=== PATIENT | female | born 1935 | race African-American/Black ===

== ENCOUNTER 2019-03-07 18:21 | Emergency (ER) | payer OTHER ==
[~2019-03-07] VITALS: Ht 157.5 cm; Wt 74.8 kg
[2019-03-07] MEDS ORDERED: NOHOMEMEDICATIONS (19:47)
[2019-03-07 20:26] LABS: HEMATOCRIT 35.2 % (37.0-47.0); HEMOGLOBIN 11.5 gm/dL (12.0-15.0); MCH 30.5 pg (26.0-34.0); MCHC 32.7 g/dL (28.0-37.0); MCV 93.4 fL (80.0-100.0); RBC 3.77 mil/uL (4.20-5.00); RDW 16.2 % (10.5-14.5); WBC 5.5 thou/uL (4.0-11.0)
[2019-03-07 21:08] LABS: ANION GAP 9 mmol/L (7-16); BUN 16 mg/dL (7-18); CHLORIDE 106 mmol/L (98-107); CO2 26 mmol/L (21-32); CREATININE 0.8 mg/dL (0.6-1.0); GLUCOSE 104 mg/dL (74-106); POTASSIUM 3.6 mmol/L (3.5-5.1); SODIUM 141 mmol/L (136-145)
[2019-03-07 21:17] LABS: ALBUMIN 3.3 g/dL (3.4-5.0); SGOT 26 U/L (15-37); SGPT 20 U/L (30-65); TOTAL BILIRUBIN 0.3 mg/dL (<0.1-1.0); TOTAL PROTEIN 7.5 g/dL (6.4-8.2); TROPONIN-I <0.06 ng/mL (<0.06)
[2019-03-07] MEDS ORDERED: MOBIC7.5 MG PO (21:54)
[2019-03-08 00:34] VITALS: BP 174/71
--- NOTE | 2019-03-08 10:52 | EKG ---
[facility] [place] [address] ELECTROCARDIOGRAM REPORT Name: DIONNE HERRERA Room #: [facility] [id number] Admission: 03/07/19 Attend Phys: Discharge: 03/08/19 Date of : 33 Report #: [id number] THIS REPORT FOR: //name// [facility] ED Test Date: 2019-03-07 Test Time: 20:37:51 Pat Name: DIONNE HERRERA Department: Room: Gender: F [employer] Sales Executive: jacky : 1935 Requested By: Alina Cervantes Order Number: [id number] MD: Maximilian Ma Measurements Intervals [place] Rate: 68 P: 52 NC: 155 QRS: -19 QRSD: 163 T: 27 QT: 449 QTc: 478 Interpretive Statements Sinus rhythm Multiple ventricular premature complexes Right bundle branch block Left ventricular hypertrophy No previous ECG available for comparison Electronically Signed On 03-08-2019 10:52:20 CDT by Maximilian Ma [email or web address] <ELECTRONICALLY SIGNED> By: Maximilian Ma MD, [facility] 03/08/19 1052 [id number] 36 Maximilian Ma MD, FACC /EPI
== END 2019-03-08 00:35 | disposition home or self-care (01) ==
LOC: ER 18:21
PROVIDERS: Nurse Practitioner Family
DX: M54.12 Radiculopathy, cervical region (principal); M25.562 Pain in left knee; R03.0 Elevated blood-pressure reading, without diagnosis of hypertension; Z88.0 Allergy status to penicillin

== ENCOUNTER 2019-08-15 20:30 | Emergency (ER) | payer OTHER ==
[~2019-08-15] VITALS: Ht 154.9 cm; Wt 38.6 kg
[~2019-08-15 20:30] MED LIST: MOBIC7.5 MG PO; NOHOMEMEDICATIONS
[2019-08-15 21:46] LABS: URINE BILIRUBIN NEGATIVE (Negative); URINE BLOOD TRACE (Negative); URINE CLARITY CLEAR; URINE COLOR YELLOW; URINE GLUCOSE-RANDOM* NEGATIVE (Negative); URINE KETONES NEGATIVE (Negative); URINE LEUKOCYTES-REFLEX NEGATIVE (Negative); URINE NITRITE-REFLEX NEGATIVE (Negative); URINE PROTEIN (DIPSTICK) NEGATIVE (Negative); URINE UROBILINOGEN 0.2 E.U./dl (0.2-1.0)
[2019-08-15 21:54] LABS: ABSOLUTE NEUTROPHILS 1.1 thou/uL (1.4-8.2); BASOPHILS 0.9 % (0.0-2.0); HEMATOCRIT 38.7 % (37.0-47.0); HEMOGLOBIN 12.5 gm/dL (12.0-15.0); LYMPHOCYTES 52.2 % (24.0-44.0); MCH 30.7 pg (26.0-34.0); MCHC 32.3 g/dL (28.0-37.0); MCV 94.9 fL (80.0-100.0); MONOCYTES 8.6 % (1.0-8.0); PLATELET COUNT 136 thou/uL (150-400); POLYS 37.3 % (36.0-66.0); RBC 4.07 mil/uL (4.20-5.00); RDW 15.3 % (10.5-14.5)
[2019-08-15 22:00] LABS: CALCIUM 8.6 mg/dL (8.5-10.1); CREATININE 0.8 mg/dL (0.6-1.0); POTASSIUM 3.9 mmol/L (3.5-5.1)
[2019-08-15 22:06] LABS: ALBUMIN 3.7 g/dL (3.4-5.0); DIRECT BILIRUBIN 0.2 mg/dL (<0.1-0.2); TOTAL BILIRUBIN 0.7 mg/dL (<0.1-1.0); TOTAL PROTEIN 7.9 g/dL (6.4-8.2)
[2019-08-15 23:02] LABS: LARGE PLATELETS OCCASIONAL
[2019-08-16] MEDS ORDERED: COLACE100 MG PO (01:01)
[2019-08-16 01:56] VITALS: BP 142/64
== END 2019-08-16 01:57 | disposition home or self-care (01) ==
LOC: ER 20:30
PROVIDERS: Emergency Medicine Emergency Medical Services; Nurse Practitioner Family
DX: K59.00 Constipation, unspecified (principal); R10.31 Right lower quadrant pain; Z88.0 Allergy status to penicillin